=== PATIENT | male | born 1950 | race American Indian/Alaskan Native ===

== ENCOUNTER 2020-11-16 22:25 | Emergency (ER) | payer MEDICARE ==
[2020-11-16 22:57] VITALS: BP 169/116
[2020-11-17] MEDS ORDERED: AMOXICILLIN/K CLAV 875/125MG TAB PO ONE (01:17)
[2020-11-17] MEDS ORDERED: ACETAMINOPHEN W/CODEINE 300-30 MG TAB PO ONE (01:17)
[2020-11-17] MEDS ORDERED: TETANUS,DIPH,PERTUSS(ACELL) VACCINE 0.5 ML SYRINGE IM ONE ×2 (01:17→03:20)
[2020-11-17] MEDS ORDERED: cloNIDine 0.1 MG TAB PO ONE (01:17)
--- NOTE | 2020-11-17 01:30 | Emergency Department Report ---
ED General Adult HPI - General Chief complaint: Eye Problems Stated complaint: RIGHT EYE METAL PARTICLES Time Seen by Provider: 11/17/20 01:16 Source: patient Mode of arrival: Ambulatory Limitations: No Limitations - History of Present Illness Initial comments: Patient states he got metal shavings under his right eye today tried grinding metal at work. Patient states he was using safety goggles however metal shavings impacted his eye causing burning and itching. Incident happened approximately 12 hours ago. Patient states itching and burning since. There is no decreased vision. No dizziness or lightheadedness. Patient does wear eyeglasses for reading. - Related Data Previous Rx's Medication Instructions Recorded Last Taken Type Acetaminophen/Codeine [Tylenol 1 tab PO Q6H PRN #12 tab 11/17/20 Unknown Rx /Codeine # 3 tab] Ketotifen Fumarate [Zaditor] 2 drop OP BID PRN #5 ml 11/17/20 Unknown Rx Ofloxacin 0.3% [Ocuflox 0.3% opth] 2 drops OP Q3H 7 Days #5 ml 11/17/20 Unknown Rx Allergies Allergy/AdvReac Type Severity Reaction Status Date / Time nifedipine [From Procardia] Allergy Swelling Verified 11/16/20 22:52 ED Review of Systems ROS: Stated complaint: RIGHT EYE METAL PARTICLES Other details as noted in HPI Constitutional: denies: chills, fever Eyes: eye pain, eye discharge (clear tearing ). denies: vision change ENT: denies: ear pain, throat pain Respiratory: denies: cough, shortness of breath, wheezing Cardiovascular: denies: chest pain, palpitations Endocrine: no symptoms reported Gastrointestinal: denies: abdominal pain, nausea, diarrhea Genitourinary: denies: urgency, dysuria Musculoskeletal: denies: back pain, joint swelling, arthralgia Skin: denies: rash, lesions Neurological: denies: headache, weakness, paresthesias Psychiatric: denies: anxiety, depression Hematological/Lymphatic: denies: easy bleeding, easy bruising ED Past Medical Hx - Past Medical History Previous Medical History?: Yes Hx Hypertension: Yes Hx Pulmonary Embolism: Yes - Surgical History Additional Surgical History: R knee - Social History Smoking Status: Never Smoker - Medications Home Medications: Home Medications Medication Instructions Recorded Confirmed Last Taken Type Acetaminophen/Codeine [Tylenol 1 tab PO Q6H PRN #12 tab 11/17/20 Unknown Rx /Codeine # 3 tab] Ketotifen Fumarate [Zaditor] 2 drop OP BID PRN #5 ml 11/17/20 Unknown Rx Ofloxacin 0.3% [Ocuflox 0.3% opth] 2 drops OP Q3H 7 Days #5 ml 11/17/20 Unknown Rx ED Physical Exam - General Limitations: No Limitations General appearance: alert, in no apparent distress - Head Head exam: Present: normocephalic, normal inspection - Eye Eye exam: Present: PERRL, EOMI, conjunctival injection. Absent: nystagmus, periorbital swelling, periorbital tenderness Pupils: Present: normal accommodation - Expanded Eye Exam Expanded Eyelids: Normal Inspection: Right Pupils: Regular, Round: Bilateral, Reactive: Bilateral Sclera/Conjunctival: Injection: Right, Foreign Body: Right Anterior chamber: Normal Inspection: Bilateral Posterior chamber: Deferred: Bilateral Visual acuity (R) = 20/: 40 Visual acuity (L) = 20/: 40 With correction: Yes - ENT ENT exam: Present: normal exam, mucous membranes moist - Neck Neck exam: Present: normal inspection, full ROM. Absent: tenderness - Respiratory Respiratory exam: Present: normal lung sounds bilaterally. Absent: respiratory distress, wheezes, stridor - Cardiovascular Cardiovascular Exam: Present: regular rate, normal rhythm, normal heart sounds. Absent: systolic murmur, diastolic murmur, rubs, gallop - GI/Abdominal GI/Abdominal exam: Present: soft, normal bowel sounds. Absent: distended, tenderness - Rectal Rectal exam: Present: deferred - Extremities Exam Extremities exam: Present: normal inspection, full ROM - Back Exam Back exam: Present: normal inspection, full ROM. Absent: tenderness - Neurological Exam Neurological exam: Present: alert, oriented X3, CN II-XII intact, normal gait - Expanded Neurological Exam Expanded Patient oriented to: Present: person, time Speech: Present: fluid speech Best Eye Response (Connell): (4) open spontaneously Best Motor Response (Connell): (6) obeys commands Best Verbal Response (Connell): (5) oriented Natalio Total: 15 - Psychiatric Psychiatric exam: Present: normal affect, normal mood - Skin Skin exam: Present: warm ED Course Vital Signs 11/16/20 22:54 Temperature 98.0 F Pulse Rate 76 Respiratory 16 Rate Blood Pressure 169/116 O2 Sat by Pulse 96 Oximetry - Eye Procedure Alcaine Drops Administered: No (Tetracaine drops) Eye FB Removal: removal w/ cotton swab Eye Irrigated w/ Saline (ccs): 10 Progress: Patient with foreign body right eye vital signs patient PERRLA EOMI mild conjunctival erythema visual acuity is 20/40 bilaterally this is baseline for this patient, patient does wear glasses. Foreign body to right lower eye @ 8:00, anesthesia with tetracaine 2 drops, fluorescein stain noted corneal abrasion to same location, foreign body removed with cotton swab Q-tip, foreign body removed intact irrigated with 20 cc sterile saline , repeat visual acuity 20/40 bilateral , patient advises pain is relieved to 0-10. Patient given follow-up instructions including follow-up with ophthalmology tomorrow. And ins tillation of antibiotic eyedrops. Patient verbalized agreement and understanding with discharge plan. ED Medical Decision Making - Medical Decision Making Foreign body right eye removed intact see procedure note. Visual acuity at baseline for this patient. DC'd with prescriptions. 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 tetanus in ED, Critical care attestation.: If time is entered above; I have spent that time in minutes in the direct care of this critically ill patient, excluding procedure time. ED Disposition Clinical Impression: Foreign body, eye Qualifiers: Encounter type: initial encounter Laterality: right Qualified Code(s): T15.91XA - Foreign body on external eye, part unspecified, right eye, initial encounter Corneal abrasion, right Qualifiers: Encounter type: initial encounter Qualified Code(s): S05.01XA - Injury of conjunctiva and corneal abrasion without foreign body, right eye, initial encounter Disposition: DC-01 TO HOME OR SELFCARE Is pt being admited?: No Does the pt Need Aspirin: No Condition: Stable Instructions: Eye Foreign Body, [id number], Corneal Abrasion, [id number] Additional Instructions: take medications as prescribed, take lotrel as prescribed by your doctor for your blood pressure, follow-up with ophthalmology (eye doctor) tomorrow as directed. Return to emergency should symptoms worsen. Prescriptions: Ofloxacin 0.3% [Ocuflox 0.3% opth] 2 drops OP Q3H 7 Days #5 ml Acetaminophen/Codeine [Tylenol /Codeine # 3 tab] 1 tab PO Q6H PRN #12 tab PRN Reason: pain Ketotifen Fumarate [Zaditor] 2 drop OP BID PRN #5 ml PRN Reason: itching burning Referrals: NGUYỄN WYNNE MD [Staff Physician] - MANUELA Forms: Work/School Release Form(ED) Time of Disposition: 01:49
[2020-11-17] MEDS ORDERED: ACETAMINOPHEN W/CODEINE 300-30 MG TAB ONE (03:19)
[2020-11-17] MEDS ORDERED: cloNIDine 0.1 MG TAB ONE (03:19)
[2020-11-17] MEDS ORDERED: AMOXICILLIN/K CLAV 875/125MG TAB ONE (03:19)
== END 2020-11-17 03:30 | disposition home or self-care (01) ==
LOC: ED 22:25
DX: S00.251A Superficial foreign body of right eyelid and periocular area, initial encounter (principal); I10 Essential (primary) hypertension; Z86.711 Personal history of pulmonary embolism; Z98.890 Other specified postprocedural states; Z79.899 Other long term (current) drug therapy; Z88.8 Allergy status to other drugs, medicaments and biological substances; X58.XXXA Exposure to other specified factors, initial encounter; Y93.89 Activity, other specified; Y92.89 Other specified places as the place of occurrence of the external cause; Y99.8 Other external cause status
CPT/HCPCS: 90471; 90715